=== PATIENT | male | born 1950 ===

== ENCOUNTER 2024-12-13 08:51 | Outpatient (RCR) | payer BC, SELFPAY ==
[2024-11-28 09:56] LABS: Glucose - Point of Care 131 mg/dl (70-99)
[2024-11-28 10:43] LABS: Glucose - Point of Care 116 mg/dl (70-99)
[2024-11-29 08:09] LABS: Glucose - Point of Care 122 mg/dl (70-99)
[2024-11-29 09:00] LABS: Glucose - Point of Care 124 mg/dl (70-99)
[2024-12-02 08:18] LABS: Glucose - Point of Care 147 mg/dl (70-99)
[2024-12-02 09:13] LABS: Glucose - Point of Care 133 mg/dl (70-99)
[2024-12-04 08:07] LABS: Glucose - Point of Care 159 mg/dl (70-99)
[2024-12-04 09:04] LABS: Glucose - Point of Care 137 mg/dl (70-99)
[2024-12-06 08:08] LABS: Glucose - Point of Care 150 mg/dl (70-99)
[2024-12-06 09:05] LABS: Glucose - Point of Care 140 mg/dl (70-99)
[2024-12-09 08:06] LABS: Glucose - Point of Care 166 mg/dl (70-99)
[2024-12-09 09:20] LABS: Glucose - Point of Care 158 mg/dl (70-99)
== END 2024-12-13 23:59 | disposition home or self-care (01) ==
LOC: CRHB 08:51
PROVIDERS: ATTENDING PHYSICIAN Internal Medicine Cardiovascular Disease
DX: Z95.1 Presence of aortocoronary bypass graft (principal)
CPT/HCPCS: 82962; 93797; 93798; G0422; G0423

== ENCOUNTER 2024-12-23 10:40 | Outpatient (RCR) | payer BC, SELFPAY | END 2024-12-23 23:59 | disposition home or self-care (01) | LOC: CRHB 10:40 | PROVIDERS: ATTENDING PHYSICIAN Internal Medicine Cardiovascular Disease; FAMILY PHYSICIAN Internal Medicine Endocrinology, Diabetes & Metabolism | DX: Z95.1 Presence of aortocoronary bypass graft (principal) | CPT/HCPCS: 93797; 93798 ==